=== PATIENT | female | born 1965 | race Caucasian/White ===

== ENCOUNTER 2016-11-02 00:29 | Emergency (ER) | payer SELFPAY ==
--- NOTE | 2016-11-02 04:17 | ED CLINICAL REPORT ---
Clinical Report - Physicians/Mid Levels [facility]ly [facility] [address] [place] [address] 11/02/2016 0:31 [id number] Time Seen: 01:36 Nov 02 2016. Arrived- By private vehicle. Historian- patient. CPT: ER phys charges level 3 (#[id number]). HISTORY OF PRESENT ILLNESS Chief Complaint: Injury to the right foot and great toe. The injury happened just prior to arrival. Fell. Occurred at home. ( ( Slipped and fell hitting her right great toe on the (?) bottom of the fridge causing injury on the right great toe.). Injury occurred. This occurred just prior to arrival. Occurred at home. She has had trouble walking. The patient has been limping when trying to walk.). Patient is experiencing moderate pain. No other injury. REVIEW OF SYSTEMS The patient sustained a laceration. She complains of pain on weight bearing. She has had swelling. No tingling, weakness, numbness or suspected foreign body. All systems otherwise negative, except as recorded above. PAST HISTORY See nurses notes. Tetanus immunization status is up-to-date. Problems: no known problems. Medications: None. Allergies: No Known Drug Allergy. SOCIAL HISTORY Heavy tobacco smoker (cigarette)- less than 1 pack per day. No alcohol use or drug use. ADDITIONAL NOTES The nursing notes have been reviewed. PHYSICAL EXAM Vital Signs: 11/02/2016 00:40 BP: 105/75. HR: 92. RR: 16. O2 saturation: 98%. Temp: 97.5 F. Pain level now: 6/10. Appearance: Alert. Patient in mild distress. Skin: Skin warm and dry. Extremities: Right great toe: moderate tenderness, mild swelling and small ecchymosis of the dorsal aspect and distal phalanx. Neurovascular intact distally. No deformity. No limitation in movement. No subungual hematoma or amputation. No ankle injury. Extremities otherwise negative. Neuro, Vascular and Tendons: Vascular status intact. Sensation intact. Motor intact. Gait: Limping gait. Neuro: Oriented X 3. No motor deficit. No sensory deficit. LABS, X-RAYS, AND EKG Rt Toes X-ray: No fracture. Normal alignment. Views: AP, lateral and oblique. Technique: good. The X-rays were independently viewed by me and interpreted contemporaneously by me. PROGRESS AND PROCEDURES Course of Care: Pt foot soaked as there was a significant amount of caked on blood over the toe and a definitive laceration could not be seen. Pt eloped prior to all dried blood soaked off toe. Patient/family counseled. Disposition: ( Pt eloped). CLINICAL IMPRESSION Fall on same level by slipping. Single deep abrasion to the right great toe. Contusion to the right great toe.No right toenail injury. Pt eloped. (Electronically signed by Bryan Fong MD 11/05/2016 6:39)
--- NOTE | 2016-11-02 04:17 | ED NURSING NOTES ---
Clinical Report - Nurses [facility] [address] [place] [address] 11/02/2016 0:31 [id number] Triage time 00:40. Acuity: LEVEL 4. Chief Complaint: RIGHT LOWER EXTREMITY PAIN. Location of symptoms- right great toe. --00:48 Sam Jones R.N. 00:40 11/02/16. BP: 105/75. HR: 92. RR: 16. O2 saturation: 98%. Temp: 97.5 F (oral). Pain level now: 10/18. --00:48 Sam Jones R.N. Weight: 74.8 kg stated. Height/Length: 72 inches Per Patient. BMI: 22.4. --00:45 Sam Jones R.N. Medications None. --00:44 Sam Jones R.N. Medication/allergy information source: the patient. --00:48 Sam Jones R.N. Allergies No Known Drug Allergy. --00:44 Sam Jones R.N. History Arrived by private vehicle. Historian: patient. Accompanied by family. ( Slipped and fell hitting her right great toe on the (?) bottom of the fridge causing injury on the right great toe.). Injury occurred. This occurred just prior to arrival. Occurred at home. She has had trouble walking. The patient has been limping when trying to walk. 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 PAST MEDICAL HX: Negative. Tetanus status: up-to-date. SOCIAL HX: Heavy tobacco smoker (cigarette)- less than 1 pack per day. --00:48 Sam Jones R.N. Interventions ID band on patient. To room. --00:48 Sam Jones R.N. PHYSICAL ASSESSMENT Ambulatory to room. GENERAL / NEURO / PSYCH: Oriented X 4. Alert. Appears in no acute distress. EXTREMITIES: Extremity pulses are within normal limits. Extremities exhibit normal ROM. Neuro-vascular status intact to the extremity. Right foot. Right big toe: laceration with controlled bleeding. Limited movement secondary to pain. SKIN: Skin intact. Skin is warm and dry. --00:49 Sam Jones R.N. NURSING PROGRESS NOTES Extremity elevated. Neuro-vascular extremity check. Reassurance given. Call light placed in reach. Side rails up x 1. Bed placed in lowest position. Brakes of bed on. Patient ready for evaluation- chart flagged and ED physician notified. --00:50 Sam Jones R.N. 02:00. Wound cleansed with sterile saline (foot soaked). --02:59 Sam Jones R.N. Reassessment after (wound cleaning). She is calm and resting quietly. Overall patient status is improved- she states feels better. ( Dried blood removed on the right great toe after soaking her foot on saline. States toe feels much better.). GENERAL / NEURO / PSYCH: Alert. Oriented X 4. RESPIRATORY: No respiratory distress. CVS: Capillary refill less than 2 seconds. EXTREMITIES: Neuro-vascular status intact to the extremities. SKIN: Skin is warm and dry. --03:47 Sam Jones R.N. DISPOSITION / DISCHARGE The patient left prior to discharge education being provided. --04:25 Sam Jones R.N. Departure time: 04:25. --04:26 Sam Jones R.N. 04:25. ( Patient left prior to completion of care. After foot was soaked, was waiting for ER physician to reassess, but patient does not want to wait.). --04:28 Sam Jones R.N. Locked/Released at 11/02/2016 4:28 by Sam Jones R.N.
--- NOTE | 2016-11-02 04:17 | ED ORDER SUMMARY ---
..... Patient: MYLES CAO OrderSheet [facility] VisitID: [id number] [address] [place] [address] 51y, F Registration Date/Time: 11/02/2016 ORDER SHEET Weight: 74.8 kg (stated) Allergies: No Known Drug Allergy GENERAL ORDERS: Toe Right Urgent (01:39 11/02/2016 Jessica ESPINOZA) (Ack 1:43 [facility] Combatant Swimmer) (1:52 [facility] Combatant Swimmer) - (Soak right great toe so wound can be appreciated.) (01:48 11/02/2016 Jessica ESPINOZA) (Ack 2:05 Nicole Ferguson.) (2:05 Nicole Ferguson.) MEDICATION ORDERS: IV FLUIDS: ORDER SHEET NOTES: [Electronically signed by Sam Jones R.N. (04:28 11/02/2016)] [Electronically signed by Bryan Fong MD (06:39 11/05/2016)] [Electronically locked/signed by Sam Jones R.N. (04:28 11/02/2016)]
--- NOTE | 2016-11-02 04:17 | ED NURSING NOTES ---
Clinical Report - Nurses [facility] [address] [place] [address] 11/02/2016 0:31 [id number] TRI[facility] Triage time 00:40. Acuity: LEVEL 4. Chief Complaint: RIGHT LOWER EXTREMITY PAIN. Location of symptoms- right great toe. --00:48 Sam Jones R.N. 00:40 11/02/16. BP: 105/75. HR: 92. RR: 16. O2 saturation: 98%. Temp: 97.5 F (oral). Pain level now: 10/18. --00:48 Sam Jones R.N. Weight: 74.8 kg stated. Height/Length: 72 inches Per Patient. BMI: 22.4. --00:45 Sam Jones R.N. Medications None. --00:44 Sam Jones R.N. Medication/allergy information source: the patient. --00:48 Sam Jones R.N. Allergies No Known Drug Allergy. --00:44 Sam Jones R.N. History Arrived by private vehicle. Historian: patient. Accompanied by family. ( Slipped and fell hitting her right great toe on the (?) bottom of the fridge causing injury on the right great toe.). Injury occurred. This occurred just prior to arrival. Occurred at home. She has had trouble walking. The patient has been limping when trying to walk. 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 PAST MEDICAL HX: Negative. Tetanus status: up-to-date. SOCIAL HX: Heavy tobacco smoker (cigarette)- less than 1 pack per day. --00:48 Sam Jones R.N. Interventions ID band on patient. To room. --00:48 Sam Jones R.N. PHYSICAL ASSESSMENT Ambulatory to room. GENERAL / NEURO / PSYCH: Oriented X 4. Alert. Appears in no acute distress. EXTREMITIES: Extremity pulses are within normal limits. Extremities exhibit normal ROM. Neuro-vascular status intact to the extremity. Right foot. Right big toe: laceration with controlled bleeding. Limited movement secondary to pain. SKIN: Skin intact. Skin is warm and dry. --00:49 Sam Jones R.N. NURSING PROGRESS NOTES Extremity elevated. Neuro-vascular extremity check. Reassurance given. Call light placed in reach. Side rails up x 1. Bed placed in lowest position. Brakes of bed on. Patient ready for evaluation- chart flagged and ED physician notified. --00:50 Sam Jones R.N. 02:00. Wound cleansed with sterile saline (foot soaked). --02:59 Sam Jones R.N. Reassessment after (wound cleaning). She is calm and resting quietly. Overall patient status is improved- she states feels better. ( Dried blood removed on the right great toe after soaking her foot on saline. States toe feels much better.). GENERAL / NEURO / PSYCH: Alert. Oriented X 4. RESPIRATORY: No respiratory distress. CVS: Capillary refill less than 2 seconds. EXTREMITIES: Neuro-vascular status intact to the extremities. SKIN: Skin is warm and dry. --03:47 Sam Jones R.N. DISPOSITION / DISCHARGE The patient left prior to discharge education being provided. --04:25 Sam Jones R.N. Departure time: 04:25. --04:26 Sam Jones R.N. 04:25. ( Patient left prior to completion of care. After foot was soaked, was waiting for ER physician to reassess, but patient does not want to wait.). --04:28 Sam Jones R.N. Locked/Released at 11/02/2016 4:28 by Sam Jones R.N.
--- NOTE | 2016-11-02 04:17 | ED ORDER SUMMARY ---
..... Patient: MYLES CAO [facility] VisitID: [id number] [address] [place] [address] 51y, F Registration Date/Time: 11/02/2016 ORDER SHEET Weight: 74.8 kg (stated) Allergies: No Known Drug Allergy GENERAL ORDERS: Toe Right Urgent (01:39 11/02/2016 Jessica ESPINOZA) (Ack 1:43 [employer] [facility] [employer] Law Clerk) (1:52 [employer] [facility] [employer] Law Clerk) - (Soak right great toe so wound can be appreciated.) (01:48 11/02/2016 Jessica ESPINOZA) (Ack 2:05 Nicole Ferguson.) (2:05 Nicole Ferguson.) MEDICATION ORDERS: IV FLUIDS: ORDER SHEET NOTES: [Electronically signed by Sam Jones R.N. (04:28 11/02/2016)] [Electronically signed by Bryan Fong MD (06:39 11/05/2016)] [Electronically locked/signed by Sam Jones R.N. (04:28 11/02/2016)]
--- NOTE | 2016-11-02 04:17 | ED CLINICAL REPORT ---
Clinical Report - Physicians/Mid Levels [facility] [address] [place] [address] 11/02/2016 0:31 [id number] Time Seen: 01:36 Nov 02 2016. Arrived- By private vehicle. Historian- patient. CPT: ER phys charges level 3 (#[id number]). HISTORY OF PRESENT ILLNESS Chief Complaint: Injury to the right foot and great toe. The injury happened just prior to arrival. Fell. Occurred at home. ( ( Slipped and fell hitting her right great toe on the (?) bottom of the fridge causing injury on the right great toe.). Injury occurred. This occurred just prior to arrival. Occurred at home. She has had trouble walking. The patient has been limping when trying to walk.). Patient is experiencing moderate pain. No other injury. REVIEW OF SYSTEMS The patient sustained a laceration. She complains of pain on weight bearing. She has had swelling. No tingling, weakness, numbness or suspected foreign body. All systems otherwise negative, except as recorded above. PAST HISTORY See nurses notes. Tetanus immunization status is up-to-date. Problems: no known problems. Medications: None. Allergies: No Known Drug Allergy. SOCIAL HISTORY Heavy tobacco smoker (cigarette)- less than 1 pack per day. No alcohol use or drug use. ADDITIONAL NOTES The nursing notes have been reviewed. PHYSICAL EXAM Vital Signs: 11/02/2016 00:40 BP: 105/75. HR: 92. RR: 16. O2 saturation: 98%. Temp: 97.5 F. Pain level now: 6/10. Appearance: Alert. Patient in mild distress. Skin: Skin warm and dry. Extremities: Right great toe: moderate tenderness, mild swelling and small ecchymosis of the dorsal aspect and distal phalanx. Neurovascular intact distally. No deformity. No limitation in movement. No subungual hematoma or amputation. No ankle injury. Extremities otherwise negative. Neuro, Vascular and Tendons: Vascular status intact. Sensation intact. Motor intact. Gait: Limping gait. Neuro: Oriented X 3. No motor deficit. No sensory deficit. LABS, X-RAYS, AND EKG Rt Toes X-ray: No fracture. Normal alignment. Views: AP, lateral and oblique. Technique: good. The X-rays were independently viewed by me and interpreted contemporaneously by me. PROGRESS AND PROCEDURES Course of Care: Pt foot soaked as there was a significant amount of caked on blood over the toe and a definitive laceration could not be seen. Pt eloped prior to all dried blood soaked off toe. Patient/family counseled. Disposition: ( Pt eloped). CLINICAL IMPRESSION Fall on same level by slipping. Single deep abrasion to the right great toe. Contusion to the right great toe.No right toenail injury. Pt eloped. (Electronically signed by Bryan Fong MD 11/05/2016 6:39)
--- NOTE | 2016-11-02 08:36 | DIAGNOSTIC IMAGING REPORT ---
PROCEDURE: XR TOE - RIGHT INDICATION: TRAUMA/INJURY stent great toe, laceration, pain. TECHNIQUE: A P foot and two views of the right first toe. COMPARISON: None. FINDINGS: Normal mineralization. No fractures. Moderate hallux valgus of the first through fourth digits. Slight lateral chronic-appearing subluxation of the fifth proximal interphalangeal joint. No traumatic appearing subluxation. No significant degenerative change. No suspicious soft-tissue calcification or radiodense foreign bodies. IMPRESSION: 1. Intact foot and first toe.
--- NOTE | 2016-11-05 06:39 | ED MAR SUMMARY ---
..... Medication Administration Record [facility] [address] [place], [place] [id number] Patient: MYLES CAO Visit ID: [id number] 51y, F Weight: 74.8 kg Height/Length: 72 in BMI: 22.4 ALLERGIES: No Known Drug Allergy
--- NOTE | 2016-11-05 06:39 | ED MAR SUMMARY ---
..... Medication Administration Record [facility] [address], [place] [id number] Patient: MYLES CAO Visit ID: [id number] 51y, F Weight: 74.8 kg Height/Length: 72 in BMI: 22.4 ALLERGIES: No Known Drug Allergy
--- NOTE | 2016-11-05 06:39 | ED DISCHARGE INSTRUCTIONS ---
Patient: MYLES CAO General Instructions [facility] VisitID: [id number] [place] [address] 51y, F Registration Date/Time: 11/02/2016 Fall on same level by slipping. Single deep abrasion to the right great toe. Contusion to the right great toe.No right toenail injury. Pt eloped. ADDITIONAL INFORMATION Mechanical Fall You have had a fall today. It appears that the cause is mechanical. That means that you slipped, tripped or lost your balance. If your fall had been due to fainting or a seizure, further tests would be required. Home Care: Rest today and resume your normal activities when you are feeling back to normal. If you were injured during the fall, follow the advice from your doctor regarding care of your injury. You may use acetaminophen (Tylenol) or ibuprofen (Motrin, Advil) to control pain, unless another pain medicine was prescribed. [NOTE: If you have chronic liver or kidney disease or ever had a stomach ulcer or GI bleeding, talk with your doctor before using these medicines.] Fall Prevention: Was there anything that caused your fall that can be fixed, removed, or replaced? Make your home safe by keeping walkways clear of objects you may trip over. Use non-slip pads under rugs. Do not walk in poorly lit areas. Do not stand on chairs or wobbly ladders. Use caution when reaching overhead or looking upward. This position can cause a loss of balance. Be sure your shoes fit properly, have non-slip bottoms and are in good condition. Be cautious when going up and down curbs, and walking on uneven sidewalks. If your balance is poor, consider using a cane or walker. Stay as active as you can. Balance, flexibility, strength, and endurance all come from exercise. They all play a role in preventing falls. Follow Up with your doctor or as advised by our staff. Get Prompt Medical Attention if any of the following occur: Repeated mechanical falls, or unexplained falls Dizziness, fainting or seizure Severe headache Chest pain or shortness of breath Palpitations (very rapid or very slow or irregular heartbeat) Blood in vomit, stools (black or red color) Weakness of an arm or leg or one side of the face Difficulty with speech or vision You have been given the following additional information: Fall, Mechanical (Electronically signed by Bryan Fong MD 11/05/2016 6:39)
--- NOTE | 2016-11-05 06:39 | ED MED RECONCILIATION SUMMARY ---
Patient: MYLES CAO Medication Reconciliation Report [facility] VisitID: [id number] [address] [place] [place] [address] 51y, F Registration Date/Time: 11/02/2016 Weight: 74.8 kg Height/Length: 72 in. BMI: 22.4 ALLERGIES: No Known Drug Allergy The patient's Home Medications are listed below: NONE. The source(s) of the original Home Medication information: patient The following Medications were given to the patient in the Emergency Department: None. The following Medications were prescribed to the patient: None.
--- NOTE | 2016-11-05 06:39 | ED MED RECONCILIATION SUMMARY ---
Patient: MYLES CAO Medication Reconciliation Report [facility] VisitID: [id number] [address] [place] [address] 51y, F Registration Date/Time: 11/02/2016 Weight: 74.8 kg Height/Length: 72 in. BMI: 22.4 ALLERGIES: No Known Drug Allergy The patient's Home Medications are listed below: NONE. The source(s) of the original Home Medication information: patient The following Medications were given to the patient in the Emergency Department: None. The following Medications were prescribed to the patient: None.
== END 2016-11-02 04:25 | disposition left against medical advice (07) ==
LOC: ED SRH 00:29
DX: S90.111A Contusion of right great toe without damage to nail, initial encounter (principal); W01.198A Fall on same level from slipping, tripping and stumbling with subsequent striking against other object, initial encounter; Y93.9 Activity, unspecified; Y92.009 Unspecified place in unspecified non-institutional (private) residence as the place of occurrence of the external cause; Y99.9 Unspecified external cause status